=== PATIENT | female | born 1965 | race American Indian/Alaskan Native ===

== ENCOUNTER 2016-05-02 04:00 | Emergency (ER) | payer MEDICARE ==
[2016-05-02 04:09] VITALS: BP 127/80; PULSE 108; RESP 18; TEMP 98.6; O2SAT 99
--- NOTE | 2016-05-02 04:13 | C.PDOC ---
Chief Complaint (Nursing): Medical Clearance Past Medical History Vital Signs: Last Vital Signs Temp 98.6 F 05/02/16 04:08 Pulse 108 H 05/02/16 04:08 Resp 18 05/02/16 04:08 BP 127/80 05/02/16 04:08 Pulse Ox 99 05/02/16 04:08 - Medical History PMH: Depression, Diabetes, HTN, Hypercholesterolemia Family History: States: Unknown Family Hx - Social History Hx Tobacco Use: No Hx Alcohol Use: Yes Hx Substance Use: No - Immunization History Hx Tetanus Toxoid Vaccination: No Hx Influenza Vaccination: No Hx Pneumococcal Vaccination: No ED Course And Treatment O2 Sat by Pulse Oximetry: 99 Disposition Counseled Patient/Family Regarding: Diagnosis - Disposition Referrals: [facility] at [facility] [Outside] Disposition: HOME/ ROUTINE Disposition Time: 04:12 Condition: STABLE Instructions: Insomnia (ED), Anxiety (ED) - POA Present On Arrival: None - Clinical Impression Clinical Impression: Insomnia disorder, Anxiety disorder
== END 2016-05-02 04:30 | disposition home or self-care (01) ==
LOC: C.ER 04:00
DX: F41.9 Anxiety disorder, unspecified (principal); G47.00 Insomnia, unspecified

== ENCOUNTER 2016-05-18 06:04 | Emergency (ER) | payer MEDICARE ==
[2016-05-18] MEDS ORDERED: Albuterol-Ipratrop 3 mg / 0.5 (3 ml) UD IH STA (07:16)
--- NOTE | 2016-05-18 07:54 | C.PDOC ---
Time Seen by Provider: 05/18/16 07:03 Chief Complaint (Nursing): Shortness Of Breath Past Medical History Vital Signs: Last Vital Signs Temp 98 F 05/18/16 06:16 Pulse 123 H 05/18/16 06:35 Resp 24 05/18/16 06:35 BP 140/74 05/18/16 06:35 Pulse Ox 98 05/18/16 06:35 - Medical History PMH: Asthma, Depression, Diabetes, HTN, Hypercholesterolemia Family History: States: Unknown Family Hx - Social History Hx Tobacco Use: No Hx Alcohol Use: Yes Hx Substance Use: No - Immunization History Hx Tetanus Toxoid Vaccination: No Hx Influenza Vaccination: No Hx Pneumococcal Vaccination: No ED Course And Treatment O2 Sat by Pulse Oximetry: 98 Disposition Counseled Patient/Family Regarding: Need For Followup, Rx Given - Disposition Referrals: Nick Ventura, ISAI, SENIOR PRODUCTION MANAGER [Advanced Practice Nurse] - Disposition: HOME/ ROUTINE Disposition Time: 07:54 Condition: STABLE Additional Instructions: Follow up with your primary medical doctor or clinic in 2-5 days for further evaluation. Take medications as prescribed. Return to the emergency department at any time if symptoms persist or worsen. Prescriptions: Prednisone 50 mg PO DAILY #5 tablet Albuterol HFA [Ventolin HFA 90 mcg/actuation (8 g)] 1 puff IH Q4 #1 puff Azithromycin [Zithromax] 250 mg PO DAILY #4 tab Instructions: Asthma (DC) - POA Present On Arrival: None - Clinical Impression Clinical Impression: Upper respiratory infection, Asthma
--- NOTE | 2016-05-18 07:57 | C.PDOC ---
History Of Present Illness 51-year-old female, PMHx includes Anxiety and Asthma, presents to the emergency department with complaints of non-productive cough and sore throat x2 days. Patient notes that she developed shortness of breath last night, resulting in her coming to the ED for evaluation. Denies nausea/vomiting, diarrhea, fevers, chills, dizziness, or any other associated symptoms. No other complaints. Time Seen by Provider: 05/18/16 07:03 Chief Complaint (Nursing): Shortness Of Breath History Per: Patient History/Exam Limitations: no limitations Onset/Duration Of Symptoms: Days Initiating Event: Upper Respiratory Illness Past Medical History Reviewed: Historical Data, Nursing Documentation, Vital Signs Vital Signs: Last Vital Signs Temp 98.9 F 05/18/16 08:33 Pulse 106 H 05/18/16 08:33 Resp 15 05/18/16 08:33 BP 131/81 05/18/16 08:33 Pulse Ox 98 05/18/16 08:54 - Medical History PMH: Asthma, Depression, Diabetes, HTN, Hypercholesterolemia Family History: States: Unknown Family Hx - Social History Hx Tobacco Use: No Hx Alcohol Use: Yes Hx Substance Use: No - Immunization History Hx Tetanus Toxoid Vaccination: No Hx Influenza Vaccination: No Hx Pneumococcal Vaccination: No Review Of Systems Except As Marked, All Systems Reviewed And Found Negative. Constitutional: Negative for: Fever, Chills Cardiovascular: Negative for: Chest Pain, Palpitations Respiratory: Positive for: Cough, Shortness of Breath, Wheezing Gastrointestinal: Negative for: Nausea, Vomiting Genitourinary: Negative for: Dysuria Musculoskeletal: Negative for: Back Pain Skin: Negative for: Rash Neurological: Negative for: Weakness, Numbness, Headache, Dizziness Physical Exam - Physical Exam Appears: Non-toxic, No Acute Distress Skin: Warm, No Rash Head: Atraumatic, Normacephalic Eye(s): bilateral: Normal Inspection, PERRL, EOMI Ear(s): Bilateral: Normal (no erythema) Nose: Normal Oral Mucosa: Moist Lips: Normal Appearing Throat: No Erythema, No Exudate, No Drooling, No Mass Neck: Normal ROM Chest: Symmetrical Cardiovascular: Rhythm Regular Respiratory: No Accessory Muscle Use, Rhonchi Gastrointestinal/Abdominal: Soft, No Tenderness Extremity: Normal ROM Neurological/Psych: Oriented x3, Normal Speech Gait: Steady ED Course And Treatment O2 Sat by Pulse Oximetry: 98 Medical Decision Making Medical Decision Making: Impression: Cough sore throat and shortness of breath x2 days. Plan: * Chest X-Ray * Duoneb, Zithromax, Prednisone * Reassess and Disposition Progress: On reassessment, patient is resting comfortably with no wheezing, SOB or chest pain, or retractions. Patient has no fever and in no distress. Oxygen saturation and breath sounds have improved. Patient is alert and oriented x 3. Patient was advised to follow up with physician/clinic in 1-2 days and return to ED if symptoms worsen or persist. Disposition Counseled Patient/Family Regarding: Diagnosis, Need For Followup, Rx Given - Disposition Referrals: Nick Ventura, ISAI, ENGINEERING FACULTY [Advanced Practice Nurse] - Disposition: HOME/ ROUTINE Disposition Time: 07:54 Condition: STABLE Additional Instructions: Follow up with your primary medical doctor or clinic in 2-5 days for further evaluation. Take medications as prescribed. Return to the emergency department at any time if symptoms persist or worsen. Prescriptions: Prednisone 50 mg PO DAILY #5 tablet Albuterol HFA [Ventolin HFA 90 mcg/actuation (8 g)] 1 puff IH Q4 #1 puff Azithromycin [Zithromax] 250 mg PO DAILY #4 tab Instructions: Asthma (DC) - Clinical Impression Clinical Impression: Upper respiratory infection, Asthma - Scribe Statement The provider has reviewed the documentation as recorded by the Trever Gupta All medical record entries made by the Caronibdnaiella were at my direction and personally dictated by me. I have reviewed the chart and agree that the record accurately reflects my personal performance of the history, physical exam, medical decision making, and the department course for this patient. I have also personally directed, reviewed, and agree with the discharge instructions and disposition.
[2016-05-18] MEDS ORDERED: Albuterol-Ipratrop 3 mg / 0.5 (3 ml) UD ONE (08:03)
[2016-05-18 08:34] VITALS: BP 131/81; PULSE 106; RESP 15; TEMP 98.9
[2016-05-18 08:38] VITALS: O2SAT 98
--- NOTE | 2016-05-18 10:52 | RAD ---
HISTORY: Shortness of breath COMPARISON: 05/18/2016 TECHNIQUE: Chest PA and lateral FINDINGS: LUNGS: Mild venous congestion. PLEURA: No significant pleural effusion identified. No pneumothorax apparent. CARDIOVASCULAR: Normal. OSSEOUS STRUCTURES: No significant abnormalities. VISUALIZED UPPER ABDOMEN: Normal. OTHER FINDINGS: None. IMPRESSION: Mild venous congestion.
--- NOTE | 2016-06-01 14:38 | CARD ---
APPROVED REPORT EKG Measurement Heart [id number] <Conclusion> Sinus tachycardia Otherwise normal ECG
== END 2016-05-18 08:33 | disposition home or self-care (01) ==
LOC: C.ER 06:04
DX: J06.9 Acute upper respiratory infection, unspecified (principal); J45.909 Unspecified asthma, uncomplicated

== ENCOUNTER 2018-03-23 09:58 | Observation (INO) | payer MEDICARE ==
[2018-03-23 10:33] VITALS: BMI 32.0
[2018-03-23] MEDS ORDERED: Sodium Chloride 0.9% 500 ML IV ONE (11:27)
--- NOTE | 2018-03-23 11:49 | C.PDOC ---
History Of Present Illness 52 y/o female, w/PMhx of diabetes, HTN, and hypercholesterolemia, presents to the ER complaining of nausea, vomiting, and diarrhea which has been present since 2 am. Patient states that she vomited about 6-7 time and she had watery d iarrhea 3-4 times. Patient notes that her last bm was today and her LMP was over 1 year ago. Her son was recently diagnosed with stomach virus and she is concerned that she may have it as well. She admits to body aches and chills. Denies having fever, headache, dizziness, weakness, CP, and abdominal pain. Time Seen by Provider: 03/23/18 11:00 Chief Complaint (Nursing): GI Problem History Per: Patient History/Exam Limitations: no limitations Onset/Duration Of Symptoms: Worse Since (2am) Current Symptoms Are (Timing): Still Present Context: Food Severity: Moderate Pain Scale Rating Of: 7 Radiation Of Pain To:: None Associated Symptoms: Chills, Nausea, Vomiting, Diarrhea. denies: Back Pain, Chest Pain, Urinary Symptoms Alleviating Factors: None Last Bowel Movement: Today Past Medical History Reviewed: Historical Data, Nursing Documentation, Vital Signs Vital Signs: Last Vital Signs Temp 99.9 F H 03/23/18 10:33 Pulse 120 H 03/23/18 10:33 Resp 16 03/23/18 10:33 BP 153/81 H 03/23/18 10:33 Pulse Ox 99 03/23/18 10:33 - Medical History PMH: Asthma, Depression, Diabetes, HTN, Hypercholesterolemia Family History: States: Unknown Family Hx - Social History Hx Tobacco Use: No Hx Alcohol Use: Yes Hx Substance Use: No - Immunization History Hx Tetanus Toxoid Vaccination: No Hx Influenza Vaccination: No Hx Pneumococcal Vaccination: No Review Of Systems Constitutional: Positive for: Chills. Negative for: Fever Cardiovascular: Negative for: Palpitations Respiratory: Negative for: Shortness of Breath Gastrointestinal: Positive for: Nausea, Vomiting, Diarrhea. Negative for: Abdominal Pain Genitourinary: Negative for: Dysuria Musculoskeletal: Negative for: Back Pain Skin: Negative for: Rash Neurological: Negative for: Headache, Dizziness Physical Exam - Physical Exam Appears: Well, Non-toxic, No Acute Distress Skin: Normal Color, Warm, Dry Head: Atraumatic, Normacephalic Eye(s): bilateral: Normal Inspection Neck: Supple Chest: Symmetrical Cardiovascular: Rhythm Regular Respiratory: Normal Breath Sounds, No Wheezing Gastrointestinal/Abdominal: Soft, No Tenderness Back: No CVA Tenderness Neurological/Psych: Oriented x3, Normal Speech, Normal Cognition, Normal Sensa tion ED Course And Treatment - Laboratory Results Result Diagrams: 03/23/18 12:18 03/23/18 12:18 ECG: Viewed By Me ECG Rhythm: Sinus Tachycardia ECG Interpretation: No Acute Changes Rate From EC O2 Sat by Pulse Oximetry: 99 (RA) Pulse Ox Interpretation: Normal - Other Rad X-Ray- Abd Ob Series X-Ray: Viewed By Me, Read By Radiologist Interpretation: Date of service: 03/23/2018. PROCEDURE: Radiographs of the chest and abdomen (obstructive series). HISTORY: r/o sbo. COMPARISON: No philippe or. TECHNIQUE: AP radiograph of the chest, with upright and supine radiographs of the abdomen. FINDINGS: CHEST: Lungs: Clear. Cardiovascular: Normal size heart. No pulmonary vascular congestion. No aortic atherosclerotic calcification present. Pleura: No pleural fluid. No pneumothorax. Other findings: None. ABDOMEN AND PELVIS: Bowel: Paucity of bowel gas. Nonspecific bowel gas pattern. No evidence of mechanical obstruction. Free air: None. Bones: Unremarkable. Other findings: None. IMPRESSION: Unremarkable radiographs of chest. Nonspecific bowel gas pattern with paucity of bowel gas which can be seen with emesis, diarrhea or fluid-filled loops of bowel. Progress Note: Labs, UA, and Rapid flu ordered- pending results. Fluids, Zofran, and Pepcid given. Bands of 17 noted. Upon Reassessment, she was noted to have less nausea and has not vomited since treatment. 14:06 Case discussed with hospitalist, . Patient will be admitted. Recommendation to start Flagyl and obtain obstructive series Disposition - Disposition Disposition: HOSPITALIZED Disposition Time: 14:17 Condition: STABLE - Clinical Impression Clinical Impression: Vomiting, Bandemia - PA / LEAF BINNER / Resident Statement MD/DO has reviewed & agrees with the documentation as recorded. - Scribe Statement The provider has reviewed the documentation as recorded by the Scribe Rasheed Leahy Provider Attestation All medical record entries made by the Scribe were at my direction and personally dictated by me. I have reviewed the chart and agree that the record accurately reflects my personal performance of the history, physical exam, medical decision making, and the department course for this patient. I have also personally directed, reviewed, and agree with the discharge instructions and disposition. Decision To Admit - Pt Status Changed To: Hospital Disposition Of: Observation - . Bed Request Type: Regular Admitting Physician: Mahamed Mcgarry Patient Diagnosis: Vomiting, Bandemia
[2018-03-23] MEDS ORDERED: Sodium Chloride 0.9% 1,000 ML ONE ×2 (12:12→14:23)
[2018-03-23 12:23] LABS: BASO % 0.2 % (0.0-2.0); EOS % 0.4 % (0.0-4.0); HEMOGLOBIN 13.7 g/dL (11.0-16.0); LYMPH # 0.2 K/uL (1.0-4.3); LYMPH % 2.5 % (20.0-40.0); MEAN CELL VOLUME 87.3 fL (81.0-99.0); MEAN CORPUSCULAR HEMOGLOBIN 29.7 pg (27.0-31.0); MEAN PLATELET VOLUME 9.7 fL (7.2-11.7); MONO # 0.4 K/uL (0.0-0.8); MONO % 4.6 % (0.0-10.0); NEUT # 7.2 K/uL (1.8-7.0); NEUT % 92.3 % (50.0-75.0); PLATELET COUNT 221 K/uL (130-400); RBC 4.62 Mil/uL (3.80-5.20); RED CELL DISTRIBUTION WIDTH 13.5 % (11.5-14.5); WHITE BLOOD COUNT 7.8 K/uL (4.8-10.8)
[2018-03-23 12:35] LABS: BLOOD UREA NITROGEN 12 mg/dL (7-17); GFR NON-AFRICAN AMERICAN > 60
[2018-03-23 12:36] LABS: ALB/GLOB RATIO 1.4 (1.0-2.1); ALT/SGPT 23 U/L (9-52); AST/SGOT 32 U/L (14-36); CALCIUM 9.3 mg/dl (8.6-10.4); LIPASE 64 U/L (23-300)
[2018-03-23 12:50] LABS: SQUAMOUS EPITHIAL 5 /hpf (0-5); URINE BACTERIA RARE (<OCC); URINE BILIRUBIN NEGATIVE (NEGATIVE); URINE BLOOD NEGATIVE (NEGATIVE); URINE CLARITY Clear (Clear); URINE COLOR Yellow (YELLOW); URINE GLUCOSE (UA) 3+ mg/dL (Normal); URINE LEUKOCYTE ESTERASE 1+ Leu/uL (Negative); URINE PROTEIN NEGATIVE (NEGATIVE); URINE UROBILINOGEN NORMAL mg/dL (0.2-1.0)
[2018-03-23 12:58] LABS: BANDS 17 % (0-2); EOSINOPHIL 1 % (0-4); LYMPHOCYTE 4 % (20-40); MONOCYTE 8 % (0-10); NEUTROPHIL 70 % (50-75); TOTAL CELLS COUNTED 100
[2018-03-23 13:00] LABS: PLATELET ESTIMATE NORMAL (NORMAL)
[2018-03-23 13:01] LABS: TOXIC GRANULATION PRESENT
[2018-03-23] MEDS ORDERED: Sodium Chloride 0.9% 1,000 ML IV ONE (13:50)
--- NOTE | 2018-03-23 15:08 | RAD ---
Date of service: 03/23/2018 PROCEDURE: Radiographs of the chest and abdomen (obstructive series) HISTORY: r/o sbo COMPARISON: No prior. TECHNIQUE: AP radiograph of the chest, with upright and supine radiographs of the abdomen. FINDINGS: CHEST: Lungs: Clear. Cardiovascular: Normal size heart. No pulmonary vascular congestion. No aortic atherosclerotic calcification present Pleura: No pleural fluid. No pneumothorax. Other findings: None. ABDOMEN AND PELVIS: Bowel: Paucity of bowel gas. Nonspecific bowel gas pattern. No evidence of mechanical obstruction. Free air: None. Bones: Unremarkable. Other findings: None. IMPRESSION: Unremarkable radiographs of chest. Nonspecific bowel gas pattern with paucity of bowel gas which can be seen with emesis, diarrhea or fluid-filled loops of bowel.
--- NOTE | 2018-03-23 15:51 | CP.PCM.HP ---
History of Present Illness - History of Present Illness History of Present Illness: cc: "mikhail been nauseous and vomiting since two am, help me" 52F PMHx of DM, HTN, HLD, PsychHx presents with a 12hr hx of nausea abdominal upset, watery diarrhea and nonbloody/nonbilious vomiting x7. Pt says she thinks she caught this from her son who got these symptoms friday. Her also has similar symptoms. Pt thinks her son contracted this from a co worker. Pt did not take anything to make it better. Pt reports she was able to swallow her home meds however vomited soon after. Pt immediately came to ER. 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 absent: Chest Pain - Respiratory Respiratory: absent: Cough, Wheezing, Stridor - Gastrointestinal Gastrointestinal: Abdominal Pain, Diarrhea, Nausea, Vomiting. absent: Hematemesis, Hematochezia - Genitourinary Genitourinary: absent: Dysuria - Musculoskeletal Musculoskeletal: Myalgias - Integumentary Integumentary: absent: Rash - Neurological Neurological: Headaches. absent: Convulsions, Dizziness - Psychiatric Psychiatric: Depression Past Patient History - Infectious Disease Hx of Infectious Diseases: None - Past Social History Smoking Status: Never Smoked - CARDIAC Hx Hypercholesterolemia: Yes Hx Hypertension: Yes - PULMONARY Hx Asthma: Yes - ENDOCRINE/METABOLIC Hx Diabetes Mellitus Type 2: Yes - PSYCHIATRIC Hx Depression: Yes Hx Substance Use: No - SURGICAL HISTORY Hx Section: Yes (x2) - ANESTHESIA Hx Anesthesia: Yes Hx Anesthesia Reactions: No Meds Allergies/Adverse Reactions: Allergies Allergy/AdvReac Type Severity Reaction Status Date / Time No Known Allergies Allergy Verified 03/23/18 10:31 Physical Exam - Constitutional Appears: Non-toxic, No Acute Distress - Head Exam Head Exam: ATRAUMATIC, NORMOCEPHALIC - Eye Exam Eye Exam: EOMI, Normal appearance, PERRL. absent: Scleral icterus - ENT Exam ENT Exam: Mucous Membranes Moist, Normal Exam - Neck Exam Neck exam: Positive for: Normal Inspection - Respiratory Exam Respiratory Exam: Clear to Auscultation Bilateral. absent: Rhonchi, Wheezes - Cardiovascular Exam Cardiovascular Exam: Tachycardia, +S1, +S2 - GI/Abdominal Exam GI & Abdominal Exam: Tenderness (Leo lower quads) - Neurological Exam Neurological exam: Alert, CN II-XII Intact, Normal Gait, Oriented x3, Reflexes Normal - Psychiatric Exam Psychiatric exam: Normal Affect, Normal Mood - Skin Skin Exam: Dry, Normal Color, Warm Results - Vital Signs Recent Vital Signs: Last Vital Signs Temp 99.8 F H 03/23/18 15:42 Pulse 120 H 03/23/18 15:42 Resp 19 03/23/18 15:42 BP 138/71 03/23/18 15:42 Pulse Ox 100 03/23/18 15:42 - Labs Result Diagrams: 03/23/18 12:18 03/23/18 12:18 Labs: Laboratory Results - last 24 hr 03/23/18 03/23/18 03/23/18 12:18 12:18 12:18 WBC 7.8 RBC 4.62 Hgb 13.7 Hct 40.3 MCV 87.3 D MCH 29.7 MCHC 34.0 RDW 13.5 Plt Count 221 MPV 9.7 Neut % (Auto) 92.3 H Lymph % (Auto) 2.5 L [place] % (Auto) 4.6 Eos % (Auto) 0.4 Baso % (Auto) 0.2 Neut # (Auto) 7.2 H Lymph # (Auto) 0.2 L [place] # (Auto) 0.4 Eos # (Auto) 0.0 Baso # (Auto) 0.0 Neutrophils % (Manual) 70 Band Neutrophils % 17 H* Lymphocytes % (Manual) 4 L Monocytes % (Manual) 8 Eosinophils % (Manual) 1 Toxic Granulation Present Platelet Estimate Normal RBC Morphology Normal Sodium 135 Potassium 4.2 Chloride 96 L Carbon Dioxide 24 Anion Gap 20 BUN 12 Creatinine 0.7 Est GFR ( Amer) > 60 Est GFR (Non-Af Amer) > 60 Random Glucose 298 H Calcium 9.3 Total Bilirubin 1.0 AST 32 ALT 23 Alkaline Phosphatase 86 Total Protein 8.7 H Albumin 5.0 Globulin 3.7 Albumin/Globulin Ratio 1.4 Lipase 64 Urine Color Yellow Urine Clarity Clear Urine pH 5.0 Ur Specific [place] 1.027 Urine Protein Negative Urine Glucose (UA) 3+ H Urine Ketones 1+ H Urine Blood Negative Urine Nitrate Negative Urine Bilirubin Negative Urine Urobilinogen Normal Ur Leukocyte Esterase 1+ H Urine WBC (Auto) 2 Urine RBC (Auto) 1 Ur Squamous Epith Cells 5 Urine Bacteria Rare Influenza Typ A,B (EIA) 03/23/18 12:42 WBC RBC Hgb Hct MCV MCH MCHC RDW Plt Count MPV Neut % (Auto) Lymph % (Auto) [place] % (Auto) Eos % (Auto) Baso % (Auto) Neut # (Auto) Lymph # (Auto) [place] # (Auto) Eos # (Auto) Baso # (Auto) Neutrophils % (Manual) Band Neutrophils % Lymphocytes % (Manual) Monocytes % (Manual) Eosinophils % (Manual) Toxic Granulation Platelet Estimate RBC Morphology Sodium Potassium Chloride Carbon Dioxide Anion Gap BUN Creatinine Est GFR ( Amer) Est GFR (Non-Af Amer) Random Glucose Calcium Total Bilirubin AST ALT Alkaline Phosphatase Total Protein Albumin Globulin Albumin/Globulin Ratio Lipase Urine Color Urine Clarity Urine pH Ur Specific [place] Urine Protein Urine Glucose (UA) Urine Ketones Urine Blood Urine Nitrate Urine Bilirubin Urine Urobilinogen Ur Leukocyte Esterase Urine WBC (Auto) Urine RBC (Auto) Ur Squamous Epith Cells Urine Bacteria Influenza Typ A,B (EIA) Negative for flu a/b Assessment & Plan - Assessment and Plan (Free Text) Assessment: 52F admitted for infectious diarrhea Plan: Infectious Diarrhea Bandemia seen on CBC f/u AM labs f/u CDiff ab IV abx: Cipro, Flagyl NS @100 Tachycardia -likely due to dehydration 2/2 to vomiting and diarrhea -2L bolus given in ED -NS@100 Hx of HTN -Home Lisinopril 2.5 qd -monitor Hx of DM -f/u A1C -fingerstick 238 -Accuchecks ACHS -ISS medium -Liquid Diet Hx of HLD -crestor 5 qd Psych Hx -Risperidone 4mg HS PPx -pepcid 20 qd
[2018-03-23] MEDS ORDERED: Dextrose 50% SYRINGE Inj (50 ml) IV PRN (16:05)
[2018-03-23] MEDS ORDERED: Glucagon Recombinant 1 mg Inj IM PRN (16:05)
[2018-03-23 16:32] VITALS: RESP 20
[2018-03-23] MEDS: Sodium Chloride 0.9% 1,000 ML IV SCH (16:42)
[2018-03-23] MEDS: Ciprofloxacin 400mg/200ml D5W 400 MG/200 ML BAG IVPB SCH (17:30)
[2018-03-23] MEDS: (Novolin R) Insulin Human Regular 100 units/ml vial SC SCH ×2 (17:30→21:23)
[2018-03-23] MEDS: metroNIDAZOLE IV 500 mg/100 ml 500 MG/100 ML BAG IVPB SCH (21:35)
[2018-03-24] MEDS: Sodium Chloride 0.9% 1,000 ML IV SCH ×3 (01:50→12:39)
[2018-03-24] MEDS: Ciprofloxacin 400mg/200ml D5W 400 MG/200 ML BAG IVPB SCH ×3 (03:48→18:24)
[2018-03-24] MEDS: metroNIDAZOLE IV 500 mg/100 ml 500 MG/100 ML BAG IVPB SCH ×2 (05:13→13:18)
--- NOTE | 2018-03-24 07:08 | CP.PCM.PN ---
Subjective - Date & Time of Evaluation Date of Evaluation: 03/24/18 Time of Evaluation: 07:08 - Subjective Subjective: Progress Note for Hospitalist service Patient seen and examined at bedside. She states she feels better, has some mild abdominal pain which resolved with Tylenol earlier today. She states she has not had any vomiting. She was febrile to 100.7 overnight. She denies chills, headache, dizziness, lightheadedness, chest pain, shortness of breath, cough, nausea, vomiting, diarrhea, leg pain, urinary discomfort. Objective - Vital Signs/Intake and Output Vital Signs (last 24 hours): Temp Pulse Resp BP Pulse Ox 99.8 F H 111 H 20 133/68 96 03/24/18 01:45 03/24/18 00:00 03/24/18 00:00 03/24/18 00:00 03/24/18 00:00 Intake and Output: 03/24/18 03/24/18 06:59 18:59 Intake Total 2120 Balance 2120 - Medications Medications: Current Medications Acetaminophen (Tylenol 325mg Tab) 650 mg PO Q6 PRN PRN Reason: Pain, Mild (1-3) Last Admin: 03/24/18 01:45 Dose: 650 mg Dextrose (Glutose 15) 0 gm PO ONCE PRN; Protocol PRN Reason: Hypoglycemia Protocol Dextrose (Dextrose 50% Inj) 0 ml IV STAT PRN; Protocol PRN Reason: Hypoglycemia Protocol Famotidine (Pepcid) 20 mg PO BID ADITHYA Last Admin: 03/23/18 17:31 Dose: 20 mg Glucagon (Glucagen Diagnostic Kit) 0 mg IM STAT PRN; Protocol PRN Reason: Hypoglycemia Protocol Sodium Chloride (Sodium Chloride 0.9%) 1,000 mls @ 100 mls/hr IV .Q10H ADITHYA Last Admin: 03/24/18 05:17 Dose: 100 mls/hr Dextrose (Dextrose 5% In Water 1000 Ml) 1,000 mls @ 0 mls/hr IV .Q0M PRN; Protocol PRN Reason: Hypoglycemia Protocol Ciprofloxacin (Cipro 400mg/200ml Dsw) 400 mg in 200 mls @ 133 mls/hr IVPB Q12H ADITHYA; Protocol Last Admin: 03/24/18 03:48 Dose: 133 mls/hr Metronidazole (Flagyl) 500 mg in 100 mls @ 100 mls/hr IVPB Q8 ADITHYA; Protocol Last Admin: 03/24/18 05:13 Dose: 100 mls/hr Insulin Human Regular (Novolin R) 0 unit SC ACHS [facility]; Protocol Last Admin: 03/23/18 21:23 Dose: Not Given Lisinopril (Zestril) 2.5 mg PO DAILY [facility] Ondansetron HCl (Zofran Inj) 4 mg IVP Q6 PRN PRN Reason: Nausea/Vomiting Last Admin: 03/24/18 05:09 Dose: 4 mg Risperidone (Risperdal Tab) 4 mg PO HS [facility] Last Admin: 03/23/18 21:36 Dose: 4 mg Rosuvastatin Calcium (Crestor) 5 mg PO HS [facility] Last Admin: 03/23/18 21:36 Dose: 5 mg - Labs Labs: 03/23/18 12:18 03/23/18 12:18 - Constitutional Appears: Well, No Acute Distress - Head Exam Head Exam: ATRAUMATIC, NORMOCEPHALIC - Eye Exam Eye Exam: EOMI, PERRL - ENT Exam ENT Exam: Mucous Membranes Moist - Neck Exam Neck Exam: Full ROM - Respiratory Exam Respiratory Exam: Clear to Ausculation Bilateral, NORMAL BREATHING PATTERN. absent: Rales, Rhonchi, Wheezes, Respiratory Distress, Stridor - Cardiovascular Exam Cardiovascular Exam: REGULAR RHYTHM, +S1, +S2. absent: Gallop, Rubs, Murmur - GI/Abdominal Exam GI & Abdominal Exam: Soft, Tenderness (Mild lower abdominal tenderness), Normal Bowel Sounds - Extremities Exam Extremities Exam: absent: Calf Tenderness, Pedal Edema - Back Exam Back Exam: absent: CVA tenderness (L), CVA tenderness (R) - Neurological Exam Neurological Exam: Alert, Awake, Oriented x3 Assessment and Plan - Assessment and Plan (Free Text) Assessment: 52 year old female admitted for abdominal pain, nausea, vomiting and diarrhea. Plan: Vomiting and Diarrhea White count remains low at 6.5 Febrile to 100.7 Continue Cipro 400mg IV, Flagyl 500mg C diff antibody negative Advance from clear liquid diet to solid diet Abdomen XR: Unremarkable radiographs of chest. Nonspecific bowel gas pattern with paucity of bowel gas which can be seen with emesis, diarrhea or fluid- filled loops of bowel. Stool studies ordered, follow up Zofran 4mg IV Q6 PRN Hx of HTN Continue Lisinopril 2.5 mg PO daily monitor History of Diabetes A1c 8.9 Accuchecks ACHS ISS medium History of Hyperlipidemia Crestor 5mg PO HS History of schizophrenia Risperidone 4mg HS History of asthma Singulair 10mg PO daily Prophylaxis Pepcid 20mg Lovenox 40mg SC Case discussed with Dr. Zeferino Tejeda, PGY
[2018-03-24 07:43] LABS: BASO % 0.4 % (0.0-2.0); EOS % 0.3 % (0.0-4.0); LYMPH # 0.8 K/uL (1.0-4.3); LYMPH % 12.3 % (20.0-40.0); MEAN CELL VOLUME 87.1 fL (81.0-99.0); MEAN CORPUSCULAR HGB CONC 33.3 g/dL (33.0-37.0); MEAN PLATELET VOLUME 9.1 fL (7.2-11.7); MONO # 0.6 K/uL (0.0-0.8); MONO % 8.9 % (0.0-10.0); NEUT # 5.1 K/uL (1.8-7.0); NEUT % 78.1 % (50.0-75.0); RBC 4.04 Mil/uL (3.80-5.20); RED CELL DISTRIBUTION WIDTH 13.4 % (11.5-14.5); WHITE BLOOD COUNT 6.5 K/uL (4.8-10.8)
[2018-03-24 07:44] VITALS: PULSE 105; O2SAT 97
[2018-03-24 07:47] LABS: ALB/GLOB RATIO 1.3 (1.0-2.1); ALBUMIN 3.7 g/dL (3.5-5.0); ALT/SGPT 35 U/L (9-52); AST/SGOT 52 U/L (14-36); BLOOD UREA NITROGEN 6 mg/dL (7-17); CALCIUM 8.1 mg/dl (8.6-10.4); GFR NON-AFRICAN AMERICAN > 60
[2018-03-24 07:48] LABS: HEMOGLOBIN 11.7 g/dL (11.0-16.0)
[2018-03-24] MEDS: (Novolin R) Insulin Human Regular 100 units/ml vial SC SCH ×3 (08:04→17:30)
[2018-03-24] MEDS ORDERED: Enoxaparin 40 mg Syringe SC SCH (10:00)
[2018-03-24 16:16] VITALS: BP 121/70; TEMP 99.8
--- NOTE | 2018-03-24 23:07 | CP.PCM.DIS ---
Provider - Provider Date of Admission: 03/23/18 14:17 Attending physician: Mahamed Mcgarry MD Time Spent in preparation of Discharge (in minutes): 30 Hospital Course - Lab Results Lab Results: Micro Results 03/23/18 19:50 Blood Blood Culture - Preliminary NO GROWTH AFTER 24 HOURS 03/23/18 17:43 Blood Blood Culture - Preliminary NO GROWTH AFTER 24 HOURS Most Recent Lab Values WBC 6.5 K/uL (4.8-10.8) 03/24/18 07:15 RBC 4.04 Mil/uL (3.80-5.20) 03/24/18 07:15 Hgb 11.7 g/dL (11.0-16.0) D 03/24/18 07:15 Hct 35.2 % (34.0-47.0) 03/24/18 07:15 MCV 87.1 fL (81.0-99.0) 03/24/18 07:15 MCH 29.0 pg (27.0-31.0) 03/24/18 07:15 MCHC 33.3 g/dL (33.0-37.0) 03/24/18 07:15 RDW 13.4 % (11.5-14.5) 03/24/18 07:15 Plt Count 164 K/uL (130-400) 03/24/18 07:15 MPV 9.1 fL (7.2-11.7) 03/24/18 07:15 Neut % (Auto) 78.1 % (50.0-75.0) H 03/24/18 07:15 Lymph % (Auto) 12.3 % (20.0-40.0) L 03/24/18 07:15 [place] % (Auto) 8.9 % (0.0-10.0) 03/24/18 07:15 Eos % (Auto) 0.3 % (0.0-4.0) 03/24/18 07:15 Baso % (Auto) 0.4 % (0.0-2.0) 03/24/18 07:15 Neut # (Auto) 5.1 K/uL (1.8-7.0) 03/24/18 07:15 Lymph # (Auto) 0.8 K/uL (1.0-4.3) L 03/24/18 07:15 [place] # (Auto) 0.6 K/uL (0.0-0.8) 03/24/18 07:15 Eos # (Auto) 0.0 K/uL (0.0-0.7) 03/24/18 07:15 Baso # (Auto) 0.0 K/uL (0.0-0.2) 03/24/18 07:15 Neutrophils % (Manual) 70 % (50-75) 03/23/18 12:18 Band Neutrophils % 17 % (0-2) H* 03/23/18 12:18 Lymphocytes % (Manual) 4 % (20-40) L 03/23/18 12:18 Monocytes % (Manual) 8 % (0-10) 03/23/18 12:18 Eosinophils % (Manual) 1 % (0-4) 03/23/18 12:18 Toxic Granulation Present 03/23/18 12:18 Platelet Estimate Normal (NORMAL) 03/23/18 12:18 RBC Morphology Normal 03/23/18 12:18 Sodium 132 mmol/L (132-148) 03/24/18 07:15 Potassium 3.9 mmol/L (3.6-5.2) 03/24/18 07:15 Chloride 101 mmol/L (98-107) 03/24/18 07:15 Carbon Dioxide 20 mmol/L (22-30) L 03/24/18 07:15 Anion Gap 15 (10-20) 03/24/18 07:15 BUN 6 mg/dL (7-17) L 03/24/18 07:15 Creatinine 0.7 mg/dL (0.7-1.2) 03/24/18 07:15 Est GFR ( Amer) > 60 03/24/18 07:15 Est GFR (Non-Af Amer) > 60 03/24/18 07:15 POC Glucose (mg/dL) 258 mg/dL (65-110) H 03/24/18 16:31 Random Glucose 283 mg/dL (65-105) H 03/24/18 07:15 Hemoglobin A1c 8.9 % (4.2-6.5) H 03/24/18 07:15 Calcium 8.1 mg/dl (8.6-10.4) L 03/24/18 07:15 Total Bilirubin 0.7 mg/dL (0.2-1.3) 03/24/18 07:15 AST 52 U/L (14-36) H D 03/24/18 07:15 ALT 35 U/L (9-52) 03/24/18 07:15 Alkaline Phosphatase 69 U/L (38-126) 03/24/18 07:15 Total Protein 6.5 g/dL (6.3-8.3) 03/24/18 07:15 Albumin 3.7 g/dL (3.5-5.0) 03/24/18 07:15 Globulin 2.8 gm/dL (2.2-3.9) 03/24/18 07:15 Albumin/Globulin Ratio 1.3 (1.0-2.1) 03/24/18 07:15 Lipase 64 U/L (23-300) 03/23/18 12:18 Urine Color Yellow (YELLOW) 03/23/18 12:18 Urine Clarity Clear (Clear) 03/23/18 12:18 Urine pH 5.0 (5.0-8.0) 03/23/18 12:18 Ur Specific [place] 1.027 (1.003-1.030) 03/23/18 12:18 Urine Protein Negative mg/dL (NEGATIVE) 03/23/18 12:18 Urine Glucose (UA) 3+ mg/dL (Normal) H 03/23/18 12:18 Urine Ketones 1+ mg/dL (NEGATIVE) H 03/23/18 12:18 Urine Blood Negative (NEGATIVE) 03/23/18 12:18 Urine Nitrate Negative (NEGATIVE) 03/23/18 12:18 Urine Bilirubin Negative (NEGATIVE) 03/23/18 12:18 Urine Urobilinogen Normal mg/dL (0.2-1.0) 03/23/18 12:18 Ur Leukocyte Esterase 1+ Janie/uL (Negative) H 03/23/18 12:18 Urine WBC (Auto) 2 /hpf (0-5) 03/23/18 12:18 Urine RBC (Auto) 1 /hpf (0-3) 03/23/18 12:18 Ur Squamous Epith Cells 5 /hpf (0-5) 03/23/18 12:18 Urine Bacteria Rare (<OCC) 03/23/18 12:18 Urine HCG, Qual Negative (NEGATIVE) 03/23/18 19:57 C. difficile Ag & Toxin Negative (NEGATIVE) 03/23/18 17:10 Influenza Typ A,B (EIA) Negative for flu a/b (NEGATIVE) 03/23/18 12:42 - Hospital Course Hospital Course: On admission: 52F PMHx of DM, HTN, HLD, PsychHx presents with a 12hr hx of nausea abdominal upset, watery diarrhea and nonbloody/nonbilious vomiting x7. Pt says she thinks she caught this from her son who got these symptoms friday. Her also has similar symptoms. Pt thinks her son contracted this from a co worker. Pt did not take anything to make it better. Pt reports she was able to swallow her home meds however vomited soon after. Pt immediately came to ER. 0pt also reports generalized body aches, headaches, chills and a sore throat from the episode of vomiting ROS pos+ vomiting, watery diarrhea, nausea, sick contacts, abd pain, palpitations, myalgias, chills neg- CP, SOB, fevers, blood in urine/stool, rash, bruising, medication changes, food poisoning Hospital course: Patient was admitted for complaints of abdominal pain, diarrhea and vomiting. Patient was found to have elevated bands of 17, treated with Ciprofloxacin and Flagyl and was hydrated with NS IV fluids. Patient was found to be febrile to 100.7 overnight. Patient was advanced from clear liquid to solid diet today and was able to tolerate diet without any vomiting. C diff and influenza were negative. Blood cultures were preliminarily negative. UA revealed glucose and ketones, A1c was 8.9. Stool studies were ordered, however patient left against medical advice. Imaging Obstructive series X ray: nonspecific bowel gas paterrn iwth paucity of bowel gas seen with emesis, diarrhea or fluid filled loops of bowel. Discharge summary: Patient left against medical advice. Patient was given scripts for Cipro and Flagyl. Discharge Exam - Head Exam Head Exam: ATRAUMATIC, NORMOCEPHALIC - Eye Exam Eye Exam: EOMI, PERRL - ENT Exam ENT Exam: Mucous Membranes Dry - Respiratory Exam Respiratory Exam: Clear to PA & Lateral, NORMAL BREATHING PATTERN - Cardiovascular Exam Cardiovascular Exam: REGULAR RHYTHM, +S1, +S2 - GI/Abdominal Exam GI & Abdominal Exam: Normal Bowel Sounds, Soft. absent: Tenderness - Extremities Exam Extremities exam: pedal pulses present - Neurological Exam Neurological exam: Alert, Oriented x3 - Psychiatric Exam Psychiatric exam: Normal Affect, Normal Mood Discharge Plan - Discharge Medications Prescriptions: Ciprofloxacin [Cipro] 250 mg PO BID #30 tab Lisinopril [Zestril] 2.5 mg PO DAILY #30 tab metroNIDAZOLE [Flagyl] 500 mg PO DAILY #30 tab - Follow Up Plan Condition: STABLE Disposition: AGAINST MEDICAL ADVICE
== END 2018-03-24 18:59 | disposition left against medical advice (07) ==
LOC: C.ER 09:58 → C.9E 14:17 → C.3T 14:37
PROVIDERS: ADMIT Internal Medicine; ATTEND Internal Medicine
DX: A09 Infectious gastroenteritis and colitis, unspecified (principal); R10.9 Unspecified abdominal pain; R11.2 Nausea with vomiting, unspecified; E11.9 Type 2 diabetes mellitus without complications; E78.00 Pure hypercholesterolemia, unspecified; I10 Essential (primary) hypertension; J45.909 Unspecified asthma, uncomplicated; Z82.3 Family history of stroke; Z98.891 History of uterine scar from previous surgery; D72.825 Bandemia; E78.5 Hyperlipidemia, unspecified
CPT/HCPCS: 36415; 74022; 80053; 81001; 81025; 82948; 83036; 83690; 84703; 85025; 87040; 87230; 87804; 93005; 96360; 96374; 99285; G0378; J0744; J1650; J2405; J7030; J7040